=== PATIENT | male | born 1995 | race Caucasian/White ===

== ENCOUNTER 2024-10-18 01:19 | Emergency (ER) | payer MEDICAID ==
[2024-10-18] MEDS ORDERED: XYLOCAINE 1% HCL 20 ML MDV IJ ONE (01:20)
[2024-10-18 01:33] VITALS: RESP 18; TEMP 97.3
[2024-10-18 01:52] LABS: Appearance Turbid (Clear); Bacteria None Seen /HPF (None Seen); Bilirubin Negative (Negative); Blood Trace (Negative); Epithelial Cells None Seen /HPF (None Seen); Glucose, Urine Negative (Negative); Hyaline Casts NONE SEEN /LPF (0-2); Ketones Trace (Negative); Leukocyte Esterase Negative (Negative); Nitrite Negative (Negative); Protein,Urine Dip Negative (Negative); WBC 0-2 /HPF (0-5)
[2024-10-18 03:02] VITALS: BP 118/74; PULSE 85; O2SAT 98
[2024-10-18] MEDS ORDERED: MOTRIN 600 MG ONE (03:07)
[2024-10-18] MEDS ORDERED: Zithromax 250 MG TABLET ONE (03:07)
[2024-10-18] MEDS ORDERED: Rocephin 500 MG INJ ONE (03:07)
[2024-10-18] MEDS: MOTRIN 600 MG PO ONE (03:10)
[2024-10-18] MEDS: Zithromax 250 MG TABLET PO ONE (03:10)
--- NOTE | 2024-10-18 03:10 | ERPHSYRPT ---
- History of Present Illness Time Seen by Provider: 10/18/24 03:07 Source: patient Exam Limitations: no limitations Patient Subjective Stated Complaint: "When I've had to go pee, I gotta go right away. My ex- had a UTI and I think I have one too". Triage Nursing Assessment: Pt presents to ER with complaints lower back aches, urinary urgency x 1 month, headache and fatigue that began this evening. States his ex- had a UTI and he believes that this is what is going on with him. States urine has been dark yellow. Pt is alert and oriented x 3. Skin is pink, warm, and dry. Respirations are unlabored. Denies vomiting or diarrhea. Slight n ausea reported. No urinary issues reported in past medical history. States has had multiple sexual partners. Physician History: 29-year-old male presented in the ER with complains of increased urinary frequency for the last few days. Also report having some mild low back pain dull aching off and on. Denies any urinary discharge/dysuria. Does have history of multiple sexual partners. Has some concern for STI. Allergies/Adverse Reactions: No Known Drug Allergies Allergy (Verified 10/18/24 01:33) Home Medications: Unobtainable 10/18/24 [History] Hx Tetanus, Diphtheria Vaccination/Date Given: Yes Hx Influenza Vaccination/Date Given: No Hx Pneumococcal Vaccination/Date Given: No Immunizations Up to Date: No Travel Risk - International Travel Have you traveled outside of the country in past 3 weeks: No - Emerging Infectious Disease Are you exhibiting symptoms associated with any current EIDs: No - Past Medical History Pertinent Past Medical History: Yes Neurological History: No Pertinent History ENT History: No Pertinent History Cardiac History: No Pertinent History Respiratory History: No Pertinent History Endocrine Medical History: No Pertinent History Musculoskeletal History: No Pertinent History GI Medical History: No Pertinent History History: No Pertinent History Psycho-Social History: Attention Deficit Disorder, Other Male Reproductive Disorders: No Pertinent History Other Medical History: PTSD - Past Surgical History Past Surgical History: No Neuro Surgical History: No Pertinent History Cardiac: No Pertinent History Respiratory: No Pertinent History Gastrointestinal: No Pertinent History Genitourinary: No Pertinent History Musculoskeletal: No Pertinent History Male Surgical History: No Pertinent History - Social History Smoking Status: Current every day smoker Exposure to second hand smoke: No Drug Use: other - Social Determinants of Health Will the patient participate in the screening: Yes Do you worry about a steady place to live?: No Do you have any problems with any of the following?: No known problems In the past 12 months,have you had to go without utilities?: No Transportation Issues: No Has anyone in your support network made you feel unsafe?: No Have you or anyone in your house had to go w/o enough food: No - Review of Systems Constitutional: No Symptoms Ears, Nose, & Throat: No Symptoms Respiratory: No Symptoms Cardiac: No Symptoms Abdominal/Gastrointestinal: No Symptoms Genitourinary Symptoms: Frequency Musculoskeletal: Back Pain Skin: No Symptoms Neurological: No Symptoms Psychological: No Symptoms - Nursing Vital Signs Nursing Vital Signs: Initial Vital Signs Temperature 97.3 F 10/18/24 01:25 Pulse Rate 78 10/18/24 01:25 Respiratory Rate 18 10/18/24 01:25 Blood Pressure 135/90 10/18/24 01:25 O2 Sat by Pulse Oximetry 99 10/18/24 01:25 Pain Scale Pain Intensity 0 - Physical Exam General Appearance: no apparent distress Ears, Nose, Throat Exam: normal ENT inspection Neck Exam: normal inspection, supple, full range of motion Respiratory Exam: normal breath sounds, lungs clear Cardiovascular Exam: regular rate/rhythm, normal heart sounds Gastrointestinal/Abdomen Exam: soft, normal bowel sounds, No tenderness Back Exam: normal inspection, normal range of motion Extremity Exam: normal inspection, normal range of motion Neurologic Exam: alert, oriented x 3, cooperative Skin Exam: normal color SpO2 Interpretation: normal SpO2: 98 O2 Delivery: Room Air Ordered Tests: Active Orders 24 hr Category Date Time Status UA W/RFX UR CULTURE Stat Lab 10/18/24 01:42 Completed Medication Summary Discontinued Medications Generic Name Dose Route Start Last Admin Trade Name Alfonso PRN Reason Stop Dose Admin Azithromycin 1,000 mg 10/18/24 01:40 Azithromycin 250 Mg Tablet PO 10/18/24 01:41 STAT ONE Azithromycin Confirm 10/18/24 03:07 Azithromycin 250 Mg Tablet Administered 10/18/24 03:08 Dose 1,000 mg .ROUTE .STK-MED ONE Ceftriaxone Sodium 500 mg 10/18/24 01:40 Ceftriaxone Sodium 500 Mg Vial IM 10/18/24 01:41 STAT ONE Ceftriaxone Sodium Confirm 10/18/24 03:07 Ceftriaxone Sodium 500 Mg Vial Administered 10/18/24 03:08 Dose 500 mg .ROUTE .STK-MED ONE Ibuprofen 600 mg 10/18/24 03:04 Ibuprofen 600 Mg Tablet PO 10/18/24 03:05 STAT ONE Ibuprofen Confirm 10/18/24 03:07 Ibuprofen 600 Mg Tablet Administered 10/18/24 03:08 Dose 600 mg .ROUTE .STK-MED ONE Lab/Rad Data: Laboratory Results 10/18/24 Range/Units 01:42 Urine Color Yellow (Yellow) Urine Appearance Turbid A (Clear) Urine pH 7.0 (4.6-8.0) Ur Specific [place] 1.020 (1.005-1.030) Urine Protein Negative (Negative) Urine Glucose (UA) Negative (Negative) mg/dL Urine Ketones Trace A (Negative) Urine Blood Trace (Negative) Urine Nitrite Negative (Negative) Urine Bilirubin Negative (Negative) Urine Urobilinogen 1.0 A (0.2) mg/dL Ur Leukocyte Esterase Negative (Negative) U Hyaline Cast (Auto) NONE SEEN (0-2) /LPF Urine Microscopic RBC 3-5 (0-5) /HPF Urine Microscopic WBC 0-2 (0-5) /HPF Ur Epithelial Cells None Seen (None Seen) /HPF Urine Bacteria None Seen (None Seen) /HPF Urine Culture Reflexed NO (NO) - Progress Progress: improved Progress Note: 10/18/24 03:12 29-year-old is evaluated in ER for concern for UTI/STI. Patient has no significant UTI. Discussed with patient about risk of STI, GC chlamydia is still not back yet, given a shot of Rocephin Zithromax. Discussed safe sex practices. Outpatient follow-up recommended. Discussed signs symptoms of worsening needing return to ER which she seems understanding. Stable for discharge. Counseled pt/family regarding: lab results, diagnosis, need for follow-up Medical Desision Making - Diagnostic Testing Diagnostic test were ordered, analyzed, and reviewed by me: Yes - Risk of complications The pt has a mod risk of morbidity or mortality based on: Need for prescription drug management - Departure Departure Disposition: Home Clinical Impression: Increased urinary frequency, Possible exposure to STI Condition: Stable Critical Care Time: No Referrals: DOCTOR,NO FAMILY [Primary Care Provider] - Follow up with PCP 1 day Instructions: Urinary Tract Infection, Adult (DC), Sexually transmitted infections Additional Instructions: Follow safe sex practices. Take Tylenol/ibuprofen as needed. Follow-up with primary care for reevaluation. Return to ER for any worsening.
[2024-10-18] MEDS: Rocephin 500 MG INJ IM ONE (03:11)
[2024-10-18 03:14] LABS: CHLAMYDIA DNA NOT DETECTED (NEGATIVE); GC DNA Probe NOT DETECTED (NEGATIVE)
== END 2024-10-18 03:30 | disposition home or self-care (01) ==
LOC: ED 01:19
DX: R35.0 Frequency of micturition (principal); Z20.2 Contact with and (suspected) exposure to infections with a predominantly sexual mode of transmission; M54.50 Low back pain, unspecified; Z72.0 Tobacco use
CPT/HCPCS: 81001; 87491; 87591; 96372; 99283; J0696; A9270-GY